=== PATIENT | female | born 1955 ===

== ENCOUNTER 2017-08-19 07:51 | Emergency (ER) | payer MEDICARE, MEDICAID ==
[2017-08-19 07:57] VITALS: BP 192/78; PULSE 85; RESP 16; TEMP 97.5; O2SAT 100; BMI 36.3
--- NOTE | 2017-08-19 08:37 | ED PDOC ---
HPI: Back Time Seen by Provider: 08/19/17 08:12 Chief Complaint (Nursing): Back Pain Chief Complaint (Provider): Back Pain History Per: Patient History/Exam Limitations: no limitations Additional Complaint(s): 62 y/o female presents to the emergency department with right sided lower back pain, buttock, and right hip pain after she was going down the stairs yesterday , missed a step, and fell on her right buttock area. Reports she was able to ambulate. States she took Naproxen yesterday but did not feel better when she woke up this morning and decided to visit the emergency department for an evaluation. Denies abdominal pain, nausea, vomiting, incontinence, numbness, tingling, head trauma, constipation, or dizziness. Past Medical History Reviewed: Historical Data, Nursing Documentation, Vital Signs Vital Signs: Last Vital Signs Temp 97.5 F L 08/19/17 07:56 Pulse 85 08/19/17 07:56 Resp 16 08/19/17 07:56 BP 192/78 H 08/19/17 07:56 Pulse Ox 100 08/19/17 07:56 - Medical History PMH: Hypothyroidism - Family History Family History: States: Unknown Family Hx - Social History Current smoker - smoking cessation education provided: No Alcohol: None Drugs: Denies - Home Medications Home Medications: Ambulatory Orders Medication Instructions Recorded Ibuprofen [Motrin] 600 mg PO TID 7 Days tab 08/19/17 - Allergies Allergies/Adverse Reactions: Allergies Allergy/AdvReac Type Severity Reaction Status Date / Time No Known Allergies Allergy Verified 05/21/15 11:35 Review of Systems Constitutional: Negative for: Weakness Cardiovascular: Negative for: Chest Pain Respiratory: Negative for: Shortness of Breath Gastrointestinal: Negative for: Nausea, Vomiting, Abdominal Pain Genitourinary Female: Negative for: Incontinence Musculoskeletal: Positive for: Back Pain, Other (Buttock and right hip pain) Neurological: Negative for: Weakness, Numbness (or tingling), Dizziness, Other ( Head trauma) Physical Exam - Reviewed Nursing Documentation Reviewed: Yes Vital Signs Reviewed: Yes - Physical Exam Appears: Positive for: Non-toxic, No Acute Distress Head Exam: Positive for: ATRAUMATIC, NORMAL INSPECTION, NORMOCEPHALIC Skin: Positive for: Normal Color, Warm, Dry Neck: Positive for: Normal, Painless ROM, Supple Cardiovascular/Chest: Positive for: Regular Rate, Rhythm. Negative for: Murmur Respiratory: Positive for: Normal Breath Sounds. Negative for: Accessory Muscle Use, Respiratory Distress Gastrointestinal/Abdominal: Positive for: Normal Exam, Soft. Negative for: Tenderness Back: Positive for: Other (Right lower back mild tenderness). Negative for: Normal Inspection Extremity: Positive for: Tenderness (Mild tenderness of the right hip. No discomfort to the left side. ), Other (Straight leg test positive of the right leg at 60 degrees) - ECG O2 Sat by Pulse Oximetry: 100 (RA) Pulse Ox Interpretation: Normal - Radiology X-Ray: Read By Radiologist X-Ray Interpretation: No Acute Disease - Progress ED Course And Treament: 905: Stable. AAOx3. Pain free. Tolerated PO. Fu with pcp. Ambulated with no issues. Medical Decision Making Medical Decision Making: Time: 813 Initial Impression: Back and hip pain s/p fall Initial Plan: --Lumbar spine x-ray --Hip w/ pelvis x-ray --Tylenol 975 mg PO --Toradol 15 mg IM --Revelation Scribe Attestation: Documented by Re Weller, acting as a scribe for Vinicio Poe MD. Provider Scribe Attestation: All medical record entries made by the Scribe were at my direction and personally dictated by me. I have reviewed the chart and agree that the record accurately reflects my personal performance of the history, physical exam, medical decision making, and the department course for this patient. I have also personally directed, reviewed, and agree with the discharge instructions and disposition. Disposition - Clinical Impression Clinical Impression: Back pain - Patient ED Disposition Is Patient to be Admitted: No Counseled Patient/Family Regarding: Studies Performed, Diagnosis, Need For Followup, Rx Given - Disposition Referrals: [facility] [Outside] - 08/21/17 Disposition: Routine/Home Disposition Time: 09:07 Condition: STABLE Additional Instructions: Return if not better in 3 days. Prescriptions: Ibuprofen [Motrin] 600 mg PO TID 7 Days tab Instructions: Acute Low Back Pain (ED) Forms: [employer] (Scottish) Print Language: CAPE VERDEAN
--- NOTE | 2017-08-19 08:55 | RAD ---
PROCEDURE: Radiographs of the Lumbar Spine. HISTORY: back pain COMPARISON: No prior. FINDINGS: BONES: Five views of the lumbar spine were performed. Exam was performed for back pain. There is disc space narrowing and endplate spurring at L4-5. Milder endplate changes are seen at L3-4 and L5-S1. No malalignment is seen. No compression fracture is noted. Pedicles are normal in outline. Mild degenerative facet changes are seen in the lower lumbar spine region. Visualized sacroiliac joints are within normal limits. No presacral masses are noted. DISC SPACES: Disc space narrowing L4-5. OTHER FINDINGS: Calcification is seen in the right upper quadrant more than likely representing gallstone. IMPRESSION: No evidence of compression fracture or malalignment. Degenerative disc disease at L4-5.
--- NOTE | 2017-08-19 08:56 | RAD ---
PROCEDURE: Right Hip Radiographs. HISTORY: pain from fall COMPARISON: None. FINDINGS: BONES: Normal. No fracture. Four views were performed. JOINTS: Degenerative changes of the right hip are noted. No femoral head flattening is seen. Pubic rami and symphysis are intact. Similar degenerative changes are seen in the left hip. No sacroiliac joint widening is seen. SOFT TISSUES: Normal. OTHER FINDINGS: None. IMPRESSION: No evidence of fracture. DJD right hip.
== END 2017-08-19 09:23 | disposition home or self-care (01) ==
LOC: H.ER 07:51
DX: M54.5 Low back pain (principal); W10.9XXA Fall (on) (from) unspecified stairs and steps, initial encounter; Y93.01 Activity, walking, marching and hiking; E03.9 Hypothyroidism, unspecified; M16.11 Unilateral primary osteoarthritis, right hip; M51.36 Other intervertebral disc degeneration, lumbar region
CPT/HCPCS: 72114; 73503; 96372; 99282; J1885

== ENCOUNTER 2017-08-24 14:35 | Emergency (ER) | payer MEDICARE, MEDICAID ==
[2017-08-24 14:35] VITALS: BMI 36.3
[2017-08-24 14:42] VITALS: BP 152/74; PULSE 72; RESP 16; TEMP 97; O2SAT 96
[2017-08-24] MEDS ORDERED: Lidocaine 5% Patch TD STA (15:48)
--- NOTE | 2017-08-24 16:08 | ED PDOC ---
HPI: Back Time Seen by Provider: 08/24/17 15:27 Chief Complaint (Nursing): Lower Extremity Problem/Injury Chief Complaint (Provider): back pain History Per: Patient History/Exam Limitations: no limitations Onset/Duration Of Symptoms: Days (10) Current Symptoms Are (Timing): Still Present Quality Of Discomfort: Sharp Previous Symptoms: Prior Injury Associated Symptoms: Incontinence, New Numbness Additional Complaint(s): Pt fell 10 days ago and since then experiencing severe pain radiating from midline low back to buttock down medially along thigh to knee, associated decreased urine output despite normal amounts of water intake, and numbness along medial thigh to foot. Seen here at onset and xrays were negative for acute fracture and patient given meds for pain without relief. Seen by clinic today and advised to go to ER for further evaluation. PMD: RENAE [place] Past Medical History Reviewed: Historical Data, Nursing Documentation, Vital Signs Vital Signs: Last Vital Signs Temp 97 F L 08/24/17 14:40 Pulse 72 08/24/17 14:40 Resp 16 08/24/17 14:40 BP 152/74 H 08/24/17 14:40 Pulse Ox 96 08/24/17 14:40 - Medical History PMH: Hypothyroidism - Family History Family History: States: Unknown Family Hx - Social History Current smoker - smoking cessation education provided: No - Home Medications Home Medications: Ambulatory Orders Medication Instructions Recorded Ibuprofen [Motrin] 600 mg PO TID 7 Days tab 08/19/17 Acetaminophen with Codeine 1 tab PO Q6 #20 tab 08/24/17 [Tylenol with Codeine No. 3 300 mg-30 mg] Lidocaine 5% [Lidoderm] 1 ea TD DAILY PRN #20 patch 08/24/17 - Allergies Allergies/Adverse Reactions: Allergies Allergy/AdvReac Type Severity Reaction Status Date / Time No Known Allergies Allergy Verified 05/21/15 11:35 Review of Systems ROS Statement: Except As Marked, All Systems Reviewed And Found Negative (and as per HPI) Constitutional: Negative for: Fever, Chills Gastrointestinal: Negative for: Abdominal Pain Genitourinary Female: Positive for: Other (incontinence, but decreased urine output) Musculoskeletal: Positive for: Back Pain, Leg Pain Skin: Negative for: Rash, Lesions Neurological: Positive for: Numbness. Negative for: Weakness Physical Exam - Reviewed Nursing Documentation Reviewed: Yes Vital Signs Reviewed: Yes - Physical Exam Appears: Positive for: Non-toxic, In Acute Distress Head Exam: Positive for: ATRAUMATIC, NORMOCEPHALIC Skin: Positive for: Warm, Dry Gastrointestinal/Abdominal: Positive for: Soft. Negative for: Tenderness Back: Positive for: Vertebral Tenderness, Other (SI jt ttp with +SLR RIGHT side) Lymphatic: Negative for: Adenopathy Neurologic/Psych: Positive for: Alert. Negative for: Motor/Sensory Deficits - Laboratory Results Result Diagrams: 08/24/17 16:15 08/24/17 16:15 - ECG O2 Sat by Pulse Oximetry: 96 - Progress ED Course And Treament: Accession No. : [id number] Patient Name / ID : CHASTITY PATEL / [id number] Exam Date : 08/24/2017 16:52:45 ( Approved ) Study Comment : Sex / Age : F / 62Y Creator : Nico Vanegas MD Dictator : [employer] Facilitator : Mixer Diamond Powder : Nico Vanegas MD Approver2 : Report Date : 08/24/2017 18:47:56 My Comment : PROCEDURE: MR LUMBAR SPINE WITHOUT CONTRAST HISTORY: severe sciatic and low back pain w/ urine retention. COMPARISON: None available. TECHNIQUE: Multiecho multiplanar sequences were performed through the lumbar spine without the use of intravenous contrast. FINDINGS: No acute compression fractures no retropulsed fragments. Vertebral bodies exhibit normal stature. Vertebral bodies and facets normally aligned. Conus terminates at approximately the T12-L1 level. T12-L1: There is mild age related disc desiccation. Disc space height maintained. Small central and bilateral disc herniation extends slightly inferiorly and superiorly within the subligamentous location over short distance. The disc results in mild flattening of the ventral surface of the thecal sac however no evidence of significant canal compromise nor compression of the conus so far as can be seen on sagittal sequence on; note that axial images have not been placed ago. L1-2: No disc herniation, spinal canal stenosis or neural foraminal narrowing. Mild facet arthropathy. L2-3: No disc herniation, spinal canal stenosis or neural foraminal narrowing. Mild facet arthropathy. L3-4: Mild disc desiccation. Disc space height maintained. Minimal broad-based bulge of the posterior annulus with what appears represent small proximal left and smaller right-sided foraminal disc herniation components. There is some flattening of the ventral surface of the thecal sac however the overall central canal appears adequate. Facets are hypertrophic. Exit foramina are slightly narrowed on the bilaterally left more so than right. . L4-5: There is mild disc desiccation and posterior disc space narrowing. Small broad- based bulge of the posterior annulus also flattens the ventral surface of the thecal sac. Bilateral foraminal disc herniation components right larger than left. The facets are hypertrophic. Central canal appears adequate despite some flattening of the ventral surface of the thecal sac however the exit foramina are narrowed bilaterally more so on the right than left. Disc desiccation. . L5-S1: Mild age related disc desiccation. Minor old posterior disc space narrowing with small central and bilateral disc bulge that results in some flattening of the ventral surface of the thecal sac however the overall central canal appears adequate. Disc extends into the proximal inferior margins of both exit foramina of. Facets are mildly hypertrophic left greater than right. Exit foramina are mildly stenotic with slight compression of the inferior L5 foraminal nerve roots OTHER FINDINGS: Apparent filling defect within the gallbladder lumen likely representing gallbladder calculus which was described on prior abdominal ultrasound dated 04/2015. Questionable bowel related artifact of versus possible dilated right-sided fallopian tube. Pelvic ultrasound followup could be performed for further evaluation IMPRESSION: No acute compression fractures. Mild multilevel degenerative spondylosis most notably affecting the lower cervical levels as described. Cholelithiasis. Questionable bowel related artifact of versus possible dilated right-sided fallopian tube. Pelvic ultrasound followup could be performed for further evaluation Disposition - Clinical Impression Clinical Impression: Degenerative joint disease (DJD) of lumbar spine Counseled Patient/Family Regarding: Studies Performed, Diagnosis, Need For Followup, Rx Given - Disposition Referrals: [facility] [Outside] - 08/25/17 Disposition: Routine/Home Disposition Time: 19:00 Condition: IMPROVED Prescriptions: Acetaminophen with Codeine [Tylenol with Codeine No. 3 300 mg-30 mg] 1 tab PO Q6 #20 tab Lidocaine 5% [Lidoderm] 1 ea TD DAILY PRN #20 patch PRN Reason: PAIN Instructions: Degenerative Disc Disease (ED) Print Language: CROATIAN
[2017-08-24] MEDS ORDERED: Lidocaine 5% Patch TD ONE (16:15)
[2017-08-24 16:19] LABS: BASO % 0.2 % (0.0-2.0); EOS # 0.4 K/uL (0.0-0.7); EOS % 4.5 % (0.0-4.0); HEMATOCRIT 40.7 % (34.0-47.0); LYMPH # 3.3 K/uL (1.0-4.3); MEAN CELL VOLUME 87.8 fl (81.0-99.0); MEAN CORPUSCULAR HEMOGLOBIN 28.7 pg (27.0-31.0); MEAN CORPUSCULAR HGB CONC 32.6 g/dL (33.0-37.0); MEAN PLATELET VOLUME 11.3 fl (7.2-11.7); MONO # 0.8 K/uL (0.0-0.8); MONO % 9.1 % (0.0-10.0); NEUT % 47.2 % (50.0-75.0); WHITE BLOOD COUNT 8.5 K/uL (4.8-10.8)
[2017-08-24 16:29] LABS: PARTIAL THROMBOPLASTIN TIME 38.5 Seconds (25.6-37.1)
[2017-08-24 16:37] LABS: ALB/GLOB RATIO 1.1 (1.0-2.1); ALKALINE PHOSPHATASE 141 U/L (38-126); ALT/SGPT 66 U/L (9-52); AST/SGOT 70 U/L (14-36); BILIRUBIN,TOTAL 0.6 mg/dl (0.2-1.3); BLOOD UREA NITROGEN 16 mg/dl (7-17); CALCIUM 8.6 mg/dL (8.4-10.2); CARBON DIOXIDE 30 mmol/L (22-30); CHLORIDE 103 mmol/L (98-107); GFR AFRICAN-AMERICAN > 60; GLUCOSE,RANDOM 106 mg/dL (65-105); POTASSIUM 4.4 MMOL/L (3.6-5.0); SODIUM 141 mmol/l (132-148); TOTAL PROTEIN 7.9 G/DL (6.3-8.2)
--- NOTE | 2017-08-24 18:49 | MRI ---
PROCEDURE: MR LUMBAR SPINE WITHOUT CONTRAST HISTORY: severe sciatic and low back pain w/ urine retention. COMPARISON: None available. TECHNIQUE: Multiecho multiplanar sequences were performed through the lumbar spine without the use of intravenous contrast. FINDINGS: No acute compression fractures no retropulsed fragments. Vertebral bodies exhibit normal stature. Vertebral bodies and facets normally aligned. Conus terminates at approximately the T12-L1 level. T12-L1: There is mild age related disc desiccation. Disc space height maintained. Small central and bilateral disc herniation extends slightly inferiorly and superiorly within the subligamentous location over short distance. The disc results in mild flattening of the ventral surface of the thecal sac however no evidence of significant canal compromise nor compression of the conus so far as can be seen on sagittal sequence on; note that axial images have not been placed ago. L1-2: No disc herniation, spinal canal stenosis or neural foraminal narrowing. Mild facet arthropathy. L2-3: No disc herniation, spinal canal stenosis or neural foraminal narrowing. Mild facet arthropathy. L3-4: Mild disc desiccation. Disc space height maintained. Minimal broad-based bulge of the posterior annulus with what appears represent small proximal left and smaller right-sided foraminal disc herniation components. There is some flattening of the ventral surface of the thecal sac however the overall central canal appears adequate. Facets are hypertrophic. Exit foramina are slightly narrowed on the bilaterally left more so than right. . L4-5: There is mild disc desiccation and posterior disc space narrowing. Small broad-based bulge of the posterior annulus also flattens the ventral surface of the thecal sac. Bilateral foraminal disc herniation components right larger than left. The facets are hypertrophic. Central canal appears adequate despite some flattening of the ventral surface of the thecal sac however the exit foramina are narrowed bilaterally more so on the right than left. Disc desiccation. . L5-S1: Mild age related disc desiccation. Minor old posterior disc space narrowing with small central and bilateral disc bulge that results in some flattening of the ventral surface of the thecal sac however the overall central canal appears adequate. Disc extends into the proximal inferior margins of both exit foramina of. Facets are mildly hypertrophic left greater than right. Exit foramina are mildly stenotic with slight compression of the inferior L5 foraminal nerve roots OTHER FINDINGS: Apparent filling defect within the gallbladder lumen likely representing gallbladder calculus which was described on prior abdominal ultrasound dated 08/11/2015. Questionable bowel related artifact of versus possible dilated right-sided fallopian tube. Pelvic ultrasound followup could be performed for further evaluation IMPRESSION: No acute compression fractures. Mild multilevel degenerative spondylosis most notably affecting the lower cervical levels as described. Cholelithiasis. Questionable bowel related artifact of versus possible dilated right-sided fallopian tube. Pelvic ultrasound followup could be performed for further evaluation
== END 2017-08-24 21:12 | disposition home or self-care (01) ==
LOC: H.ER 14:35
DX: M51.36 Other intervertebral disc degeneration, lumbar region (principal); E03.9 Hypothyroidism, unspecified
CPT/HCPCS: 72148; 80053; 85025; 85610; 85730; 96374; 99284; J1885